=== PATIENT | female | born 2000 | race Caucasian/White ===

== ENCOUNTER 2020-06-07 11:22 | Emergency (ER) | payer OTHER, MEDICAID, SELFPAY ==
[2020-06-07 11:40] VITALS: BP 154/92; PULSE 67; RESP 16; TEMP 36.8; O2SAT 96; BMI 28.1
--- NOTE | 2020-06-07 12:09 | ED_ITS ---
HPI - Ear Problem <Linda Wagner PA-C - Last Filed: 06/07/20 22:27> General Chief complaint: Ear Stated complaint: right ear pain 8/10 injury x2 days Time Seen by Provider: 06/07/20 11:57 Source: patient Mode of arrival: Ambulatory Limitations: no limitations History of Present Illness HPI Narrative: This is a generally healthy 19-year-old with a history of PCOS and a ruptured right tympanic membrane as a child who presents to the emergency department with her mother and is complaining of severe 8/10 sharp right ear pain that feels deep but is not constant, yesterday afternoon she jumped off of a rope swing from about 20 ft of height into [place] and she says that she landed with her right ear on the right hitting the water, she continued to swim and felt ok at first but over the next hour so she started to develop right ear pain, it became so severe last night that she cannot sleep she did take Tylenol and ibuprofen it subsided somewhat but increased again this morning to an 8/10 and they came to the emergency department. She does feel like her hearing on the right is slightly muffled since yesterday. She has not had any bleeding from her ear, any discharge from her ear she denies headache, neck pain, visual symptoms, she did recently have strep throat about 3 weeks ago and took a course of Augmentin for this. MD Complaint: ear pain Location: right ear Duration: intermittent Severity: severe Relieving factors: nothing Exacerbating factors: chewing and palpation (Of the tragus) Context: recent illness (Strep throat 3 weeks ago), trauma (Barotrauma) and recent swimming Discharge from ear: no Associated symptoms ear: decreased hearing Treatment prior to arrival: other (Tylenol and ibuprofen) Related Data Previous Rx's Medication Instructions Recorded ofloxacin 5 drop EAR-RIGHT DAILY #10 ml 06/07/20 oxycodone-acetaminophen 1 tab PO TID PRN #14 tab 06/07/20 oxycodone-acetaminophen 1 tab PO Q6H PRN #14 tab 06/09/20 oxycodone-acetaminophen [Percocet] 1 tab PO Q6H PRN #14 tab 06/09/20 Allergies Allergy/AdvReac Type Severity Reaction Status Date / Time No Known Drug Allergies Allergy Verified 06/09/20 00:31 Review of Systems <Linda Wagner PA-C - Last Filed: 06/07/20 22:27> Review of Systems Narrative: GENERAL: Denies chills, fatigue, malaise, fever, sweats. HEENT: Denies sinus pain, positive for ear pain, negative for sore throat, difficulty swallowing, dizziness. RESPIRATORY: Denies dyspnea, cough, wheezing, hemoptysis, sputum. CARDIOVASCULAR: Denies chest pain, palpitations, orthopnea, edema, GASTROINTESTINAL: Denies nausea, vomiting, abdominal pain, diarrhea, constipation, melena. : Denies dysuria, frequency, incontinence, hematuria, urinary retention. MUSCULOSKELETAL: denies weakness, joint pain, or bony pain SKIN: Denies rash, skin lesions, or other NEUROLOGIC: Denies weakness, headache, numbness, change in speech, confusion, seizures, incoordination. PSYCHIATRIC: No concerning psychosocial issues. 12 point review of systems is negative except for those stated above Patient History <Linda Wagner PA-C - Last Filed: 06/07/20 22:27> Social History Smoking Status: Never smoker Smoking Status: Unknown if ever smoked alcohol intake frequency: holidays/special occasions only Substance Use Type: does not use Exam <RIO Boykin Last Filed: 06/07/20 22:27> Narrative Exam Narrative: GENERAL: 19 year old patient appears stated age. Well-nourished, obese, in moderate distress. HEAD: Atraumatic. Normocephalic. EYES: Pupils equal round and reactive. Extraocular motions intact. No scleral icterus. No injection or drainage. ENT: Nose without bleeding, purulent drainage. Throat without erythema, tonsillar hypertrophy or exudate. Airway patent. Bilateral ear canals are normal in appearance without discharge. The left tympanic membrane is pearly villanueva cone of light visible, the right tympanic membrane is intact, erythematous and injected with a clear fluid effusion behind it, there is scarring present right tympanic membrane is not retracted, not bulging. Hearing is intact bilaterally but is just slightly diminished on the right to whispered voice. NECK: Trachea midline. Non tender CARDIOVASCULAR: Regular rate and rhythm without murmurs, gallops, or rubs. RESPIRATORY: Clear to auscultation. Breath sounds equal bilaterally. No wheezes, rales, or rhonchi. GASTROINTESTINAL: Abdomen soft, non-tender, nondistended. EXTREMITIES: No edema or joint tenderness. BACK: Nontender without deformity or crepitance. No flank tenderness. NEURO: AOx3. Cranial nerves are intact. SKIN: No rash or erythema of visible areas Initial Vital Signs Initial Vital Signs: Vital Signs Temperature 98.2 F 06/07/20 11:40 Pulse Rate 67 06/07/20 11:40 Respiratory Rate 16 06/07/20 11:40 Blood Pressure 154/92 H 06/07/20 11:40 Pulse Oximetry 96 06/07/20 11:40 <Jose Morejon MD - Last Filed: 06/18/20 17:52> Initial Vital Signs Initial Vital Signs: Vital Signs Temperature 98.2 F 06/07/20 11:40 Pulse Rate 67 06/07/20 11:40 Respiratory Rate 16 06/07/20 11:40 Blood Pressure 154/92 H 06/07/20 11:40 Pulse Oximetry 96 06/07/20 11:40 Scores <Linda Wagner PA-C - Last Filed: 06/07/20 22:27> [employer] [place] coma scale eye opening: Spontaneous [place] coma scale verbal response: Orientated [place] coma scale motor response: Obey commands [place] coma scale total score: 15 Course <Linda Wagner PA-C - Last Filed: 06/07/20 22:27> Orders Ordered: Discontinued Medications Ketorolac Tromethamine (Toradol) 15 mg IM NOW ONE Stop: 06/07/20 12:26 Last Admin: 06/07/20 12:47 Dose: 15 mg Documented by: ALIN Ondansetron HCl (Zofran) 4 mg PO NOW ONE Stop: 06/07/20 12:26 Last Admin: 06/07/20 12:48 Dose: Not Given Documented by: BRIANAOTEM Ondansetron HCl (Zofran Odt) 4 mg SL NOW ONE Stop: 06/07/20 12:43 Last Admin: 06/07/20 12:48 Dose: 4 mg Documented by: ALIN Oxycodone/Acetaminophen (Percocet 5/325) 1 tab PO NOW ONE Stop: 06/07/20 13:21 Last Admin: 06/07/20 13:31 Dose: 1 tab Documented by: CTRFAVIOLA Vital Signs Vital signs: Vital Signs - 8 hr 06/07/20 11:40 06/07/20 13:29 Temperature 98.2 F 97.6 F Pulse Rate 67 74 Respiratory Rate 16 16 Blood Pressure 154/92 H 116/64 Pulse Oximetry 96 98 <Jose Morejon MD - Last Filed: 06/18/20 17:52> Orders Ordered: Discontinued Medications Ketorolac Tromethamine (Toradol) 15 mg IM NOW ONE Stop: 06/07/20 12:26 Last Admin: 06/07/20 12:47 Dose: 15 mg Documented by: BRIANAOTEM Ondansetron HCl (Zofran) 4 mg PO NOW ONE Stop: 06/07/20 12:26 Last Admin: 06/07/20 12:48 Dose: Not Given Documented by: KBROTEM Ondansetron HCl (Zofran Odt) 4 mg SL NOW ONE Stop: 06/07/20 12:43 Last Admin: 06/07/20 12:48 Dose: 4 mg Documented by: ALIN Oxycodone/Acetaminophen (Percocet 5/325) 1 tab PO NOW ONE Stop: 06/07/20 13:21 Last Admin: 06/07/20 13:31 Dose: 1 tab Documented by: LISA Vital Signs Vital signs: Vital Signs - 8 hr 06/07/20 11:40 06/07/20 13:29 Temperature 98.2 F 97.6 F Pulse Rate 67 74 Respiratory Rate 16 16 Blood Pressure 154/92 H 116/64 Pulse Oximetry 96 98 Medical Decision Making <Linda Wagner PA-C - Last Filed: 06/07/20 22:27> Differential Diagnosis Differential Diagnosis: Otic barotrauma, hearing loss, hemotympanum Medical Records Medical records reviewed: Yes I reviewed the patient's medical records. Lab Data Lab results reviewed: No I reviewed the patient's lab results. MDM Narrative Medical decision making narrative: This is a well-appearing 19-year-old who is in moderate distress complaining of 8/10 pain in her right ear that has been present on and off since yesterday evening. She sustained barotrauma to her right ear when she jumped off of a rope swing yesterday afternoon and landed in the water. Onset of her pain was delayed, hearing is intact, tympanic membrane is intact, she is provided with ofloxacin drops, as well as pain medicine, encouraged to follow-up with her primary care and also referred to ENT. Emergency return precautions are provided, all questions are answered. Discharge Plan Departure Patient Disposition: Home Clinical Impression: Barotrauma, otic Qualifiers: Encounter type: subsequent encounter Qualified Code(s): T70.0XXD - Otitic barotrauma, subsequent encounter Acute ear pain Qualifiers: Laterality: right Qualified Code(s): H92.01 - Otalgia, right ear Discharge Date/Time: 06/07/20 13:31 Instructions: How to Instill Ear Drops, DI for Ear Pain-Adult Activity Restrictions/Additional Instructions: Thank you for letting us be part of your care in the emergency department today. There is no evidence of an emergent or life threatening illness at this time, but follow up with your doctor in 1-2 days is recommended nonetheless to continue to rule out serious underlying causes of your symptoms. Your tympanic membrane is not ruptured however it did sustain trauma when your ear hit the water and is currently inflamed. I have also put in information for you to contact a ear nose and throat doctor, however strongly recommend you establish care with a primary care physician and I have included information for the [facility] resources [place], they can help you with this if you choose to establish here in [place] and they may be able to direct you to other options in [place] where you live. Please monitor your symptoms carefully, if you do develop fevers, have increasing ear pain, worsening hearing, drainage from your ear, developed a headache or new pain, please seek medical care. I have provided you with a prescription for ofloxacin drops as a prophylaxis against infection, I have also provided you with a short course of stronger pain medicine, however I do recommend you try taking Tylenol and ibuprofen to relieve her pain before resorting to stronger pain medicine. Please call your primary care office for an appointment. Please return to the Emergency Department for any worsening or persistent symptoms. Please take medications as directed. Prescriptions: New oxycodone-acetaminophen 5-325 mg tablet 1 tab PO TID PRN (Reason: pain) Qty: 14 RF: 0 ofloxacin 0.3 % drops 5 drop EAR-RIGHT DAILY Qty: 10 RF: 0 No Action oxycodone-acetaminophen 5-300 mg tablet 1 tab PO Q6H PRN (Reason: pain) Qty: 14 RF: 0 oxycodone-acetaminophen [Percocet] 5-325 mg tablet 1 tab PO Q6H PRN (Reason: pain) Qty: 14 RF: 0 Referrals: [facility] [Outside] Kaz Larios MD [Physician] - <Jose Morejon MD - Last Filed: 06/18/20 17:52> [facility] ED [facility] I was immediately available in the department for consultation. This documentation has been reviewed and I agree with assessment and plan. Supervised by Jose Morejon MD
[2020-06-07] MEDS: KETOROLAC 60 MG/2 ML VIAL 15 MG IM (12:47)
[2020-06-07] MEDS: ONDANSETRON 4 MG ODT SL (12:48)
[2020-06-07 13:29] VITALS: BP 116/64; PULSE 74; RESP 16; TEMP 36.4; O2SAT 98
[2020-06-07] MEDS: OXYCODONE/ACETAMINOPHEN 5/325 TABLET 1 TAB PO (13:31)
== END 2020-06-07 13:31 | disposition home or self-care (01) ==
PROVIDERS: Emergency Provider Student in an Organized Health Care Education/Training Program
DX: T70.0XXA Otitic barotrauma, initial encounter (principal); H92.01 Otalgia, right ear; E66.9 Obesity, unspecified; Y93.19 Activity, other involving water and watercraft
CPT/HCPCS: 96372; 99283; J1885

== ENCOUNTER 2020-06-08 02:21 | Emergency (ER) | payer OTHER, MEDICAID, SELFPAY ==
--- NOTE | 2020-06-08 02:28 | ED_ITS ---
HPI - Ear Problem General Chief complaint: Ear Stated complaint: right ear pain Time Seen by Provider: 06/08/20 02:28 History of Present Illness HPI Narrative: 19-year-old woman otherwise healthy presents for the 2nd time to the ER within 24 hours for severe right ear pain. She notes jumping off a rope swing into a [place] approximately 36 hours ago landing on her right ear initially seemed like things were okay but over the next hour noticed significantly increasing here pain and neck pain. Was unable to sleep that night. Seen yesterday in the emergency department provided ofloxacin drops and pain medication. In the interval she has gotten significantly worse, increasing swelling over the right side of her face and has noted some serosanguineous discharge from the right ear. She complains that her hearing is different out of that ear ?everyone sounds like there under water?, some mild right facial numbness significant neck pain. She does not note any nasal drainage and has not had any fevers. Related Data Previous Rx's Medication Instructions Recorded ofloxacin 5 drop EAR-RIGHT DAILY #10 ml 06/07/20 oxycodone-acetaminophen 1 tab PO TID PRN #14 tab 06/07/20 Allergies Allergy/AdvReac Type Severity Reaction Status Date / Time No Known Drug Allergies Allergy Verified 06/07/20 11:47 Review of Systems Review of Systems Narrative: Pertinent positive and negative findings as per HPI Remainder of review of systems is otherwise unremarkable for Constitutional: Fevers, chills, weakness CV: Chest pain, palpitations, Respiratory: Cough, wheeze, dyspnea GI: Nausea, vomiting, diarrhea, Patient History Social History Smoking Status: Unknown if ever smoked Smoking Status: Unknown if ever smoked alcohol intake frequency: holidays/special occasions only Substance Use Type: does not use Exam Narrative Exam Narrative: General: Healthy appearing, significant distress due to right- sided facial/ear pain. HEENT: Moist mucous membranes, normal sclera with reactive pupils, nasal mucosa is unremarkable, oropharynx is non erythematous She has fullness along the right side of her face. Notes decreased sensation to touch over her right cheek and jaw, tenderness at the mastoid process. Left tympanic membrane and ear are unremarkable. Right tympanic membrane with significant edema thickened with bleeding over the central portion of the ear ca nal there is approximately 25% tympanic membrane rupture the anterior portion. Moderate amount of canal edema is also appreciated. She is not specifically tender over the TMJ or with biting. Neck: Tenderness along the entire cervical spine with point tenderness C3-4 in 5 as well as paraspinous and trapezius muscle spasm right greater than left. Respiratory: Lungs are clear to auscultation, no wheezing no rales no rhonchi. Full and symmetrical air movement Cardiac: Regular rate and rhythm no murmurs no bruits Abdomen: Soft nontender good bowel tones, no flank pain Skin: Warm and dry, no rashes Extremities: No trauma, well perfused Psych: Cooperative, dramatic affect Initial Vital Signs Initial Vital Signs: Vital Signs Temperature 98.2 F 06/08/20 02:29 Pulse Rate 117 H 06/08/20 02:29 Respiratory Rate 33 H 06/08/20 02:29 Blood Pressure 128/87 06/08/20 02:29 Pulse Oximetry 98 06/08/20 02:29 Course Orders Ordered: ED Orders 06/08/20 02:45 Complete Blood Count AUTO DIFF Stat Comprehensive Metabolic Panel Stat 06/08/20 03:00 CT mastoid temporal Stat 06/08/20 03:04 CT cervical spine wo con Stat Discontinued Medications Hydromorphone HCl (Dilaudid) 0.5 mg IV NOW ONE Stop: 06/08/20 02:46 Last Admin: 06/08/20 02:53 Dose: 0.5 mg Documented by: KATHRIN Ketorolac Tromethamine (Toradol) 15 mg IV NOW ONE Stop: 06/08/20 02:46 Last Admin: 06/08/20 02:52 Dose: 15 mg Documented by: KATHRIN Ondansetron HCl (Zofran) 4 mg IV NOW ONE Stop: 06/08/20 02:58 Last Admin: 06/08/20 02:59 Dose: 4 mg Documented by: KATHRIN Oxycodone/Acetaminophen (Percocet 5/325) 2 tab PO NOW ONE Stop: 06/08/20 04:25 Vital Signs Vital signs: Vital Signs - 8 hr 06/08/20 02:29 Temperature 98.2 F Pulse Rate 117 H Respiratory Rate 33 H Blood Pressure 128/87 Pulse Oximetry 98 Medical Decision Making Medical Records Medical records reviewed: Yes I reviewed the patient's medical records. Lab Data Lab results reviewed: Yes I reviewed the patient's lab results. Result diagrams: 06/08/20 02:45 06/08/20 02:45 Labs: Lab Results 06/08/20 06/08/20 Range/Units 02:45 02:45 WBC 10.2 (4.5-11.0) X10^3/uL RBC 4.38 (4.0-5.2) X10^6/uL Hgb 13.0 (12.0-16.0) g/dL Hct 38.5 (36-46) % MCV 88.0 (80-100) fL MCH 29.7 (26-34) PG MCHC 33.7 (30-36) % RDW 13.2 (11.6-14.8) % Plt Count 362 (150-400) X10^3/uL Neut % (Auto) 63.7 (50-75) % Lymph % (Auto) 22.7 L (25-40) % [place] % (Auto) 10.6 (3-14) % Eos % (Auto) 2.6 (2-4) % Baso % (Auto) 0.4 (0-2) % Neut # (Auto) 6500 (0107-8904) /uL Lymph # (Auto) 2300 (5359-4760) /uL [place] # (Auto) 1100 H (0-900) /uL Eos # (Auto) 300 (0-450) /uL Baso # (Auto) 0 (0-100) /uL Sodium 136 L (137-145) mmol/L Potassium 3.9 (3.4-5.1) mmol/L Chloride 101 (98-107) mmol/L Carbon Dioxide 29 (22-32) mmol/L BUN 10 (7-17) mg/dL Creatinine 0.50 L (0.52-1.04) mg/dL Estimated GFR > 60.0 (>60) mL/min BUN/Creatinine Ratio 20.0 (6-22) Glucose 106 H (70-100) mg/dL Calcium 9.7 (8.4-10.2) mg/dL Total Bilirubin 0.5 (0.2-1.3) mg/dL AST 29 (14-36) IU/L ALT 23 (<35) IU/L Alkaline Phosphatase 93 (38-126) U/L Total Protein 7.5 (6.3-8.2) g/dL Albumin 4.6 (3.5-5.0) g/dL Globulin 2.9 (1.7-4.1) g/dL Albumin/Globulin Ratio 1.6 (1.0-2.8) Imaging Data CT of the temporal bones with out contrast: Radiologist's Impression: Thickening of the tympanic membrane and fluid within the middle ear Increased soft density within prove sacs space compatible with cholesteatoma Facial nerve appears unremarkable Minimal fluid within right mastoid air cells Electronically signed June 08, 2020 4:08am Bekah Sesay MD CT - cervical spine: Radiologist's Impression: No acute traumatic injury Mild sphenoid sinus disease Electronically signed June 08, 2020 4:12am Bekah Sesay MD [facility] Narrative Medical decision making narrative: Patient is feeling better after Toradol and IV Dilaudid. The neck brace actually is also quite helpful. She does have significant tympanic membrane injury and swelling but no other fractures or acute facial nerve injury is appreciated. She will need to follow- up with ENT. I will also ask her to continue with the ear drops started earlier today. She has 14 Percocet and I will ask her to combined had ibuprofen with Percocet for more effective pain control. She is safe for home discharge Discharge Plan Departure Patient Disposition: Home Clinical Impression: Rupture of right tympanic membrane Barotrauma, otic Qualifiers: Encounter type: subsequent encounter Qualified Code(s): T70.0XXD - Otitic barotrauma, subsequent encounter Acute strain of neck muscle Qualifiers: Encounter type: subsequent encounter Qualified Code(s): S16.1XXD - Strain of muscle, fascia and tendon at neck level, subsequent encounter Cholesteatoma Qualifiers: Laterality: right Qualified Code(s): H71.91 - Unspecified cholesteatoma, right ear Instructions: Ruptured Eardrum Activity Restrictions/Additional Instructions: Thank you for coming back this evening You clearly caused significant swelling to the tympanic membrane with the fall. I suspect the swelling along your face is simply due to the fall as well. The CT scan shows a swollen tympanic membrane but no other dramatic injuries. The hearing loss is likely due to the swollen tympanic membrane. The acute pain that you experienced that brought you back to the emergency room tonight was likely the tympanic membrane rupturing. The rupture look small enough that it should heal nicely. An incidental finding on the CT scan was a cholesteatoma, a collection of skin cells inside the middle ear. For the acute neck strain I am going to give you a soft collar, use this to support your head and for comfort only. The CT scan of your neck and cervical spine was normal. Using 400 mg of ibuprofen (2 [id number] pills) and 1 Tylenol every 6 hours can be very helpful in controlling pain. For severe pain you can use 400 mg of ibuprofen and 1 or 2 Percocet. Please continue with ear drops that you picked up earlier today Later today, you need to call [facility] to schedule an appointment with the [employer]. I hope you feel better Prescriptions: No Action oxycodone-acetaminophen 5-325 mg tablet 1 tab PO TID PRN (Reason: pain) Qty: 14 RF: 0 ofloxacin 0.3 % drops 5 drop EAR-RIGHT DAILY Qty: 10 RF: 0 Referrals: Kaz Larios MD [Physician] -
[2020-06-08 02:29] VITALS: BP 128/87; PULSE 117; RESP 33; TEMP 36.8; O2SAT 98; BMI 28.1
[2020-06-08] MEDS: KETOROLAC 60 MG/2 ML VIAL 15 MG IV (02:52)
[2020-06-08] MEDS: HYDROMORPHONE 0.5 MG INJ IV (02:53)
[2020-06-08 02:55] LABS: Add Manual Diff / Slide Review NO; Basophils Absolute Auto 0 /uL (0-100); Basophils Percent Auto 0.4 % (0-2); Eosinophils Absolute Auto 300 /uL (0-450); Eosinophils Percent Auto 2.6 % (2-4); Hematocrit 38.5 % (36-46); Lymphocytes Absolute Auto 2300 /uL (1100-4500); Lymphocytes Percent Auto 22.7 % (25-40); Mean Corpuscular HGB Conc 33.7 % (30-36); Mean Corpuscular Hemoglobin 29.7 PG (26-34); Monocytes Absolute Auto 1100 /uL (0-900); Monocytes Percent Auto 10.6 % (3-14); Neutrophils Absolute Auto 6500 /uL (1500-7000); Neutrophils Percent Auto 63.7 % (50-75); Platelet Count 362 X10^3/uL (150-400); Red Blood Cell Count 4.38 X10^6/uL (4.0-5.2); Red Cell Distribution Width 13.2 % (11.6-14.8); White Blood Cell Count 10.2 X10^3/uL (4.5-11.0)
[2020-06-08] MEDS: ONDANSETRON 4 MG/2 ML INJ IV (02:59)
--- NOTE | 2020-06-08 03:00 | DI.CT.S_ITS ---
PROCEDURE: CT MASTOID TEMPORAL INDICATIONS: barotrauma, hearing loss, facial numbness COMPARISON: [facility], CT, CT CERVICAL SPINE WO CON, 06/08/2020, 2:59. TECHNIQUE: Noncontrast 0.6 mm thick direct axial and coronal sections acquired through each temporal bone separately. FINDINGS: Image quality: Excellent. RIGHT: External auditory canal: Canal has a normal appearance. Middle ear: There is abnormal soft tissue density material seen throughout the right middle ear cavity, including within Prussak's space. No definite erosions of the middle ear ossicles can be seen. The scutum appears intact. The tympanic membrane appears thickened. Inner ear: Inner ear is normally formed and appears unremarkable. Facial nerve appears normal throughout is course. Mastoids: Mastoid air cells demonstrate mild fluid. LEFT: External auditory canal: Canal has a normal appearance. Middle ear: The middle ear structures, including the ossicles and tympanic membrane, appear normal. No abnormal fluid or soft tissue density. Inner ear: Inner ear is normally formed and appears unremarkable. Facial nerve appears normal throughout its course. Mastoids: Mastoid air cells are clear. MISCELLANEOUS: Minimal mucosal thickening is seen within the sphenoid sinuses. Visualized surrounding bones appear unremarkable. Visualized intracranial structures, including the cerebellopontine angle cisterns, appear normal. IMPRESSION: Abnormal right middle ear cavity, with generalized abnormal soft tissue material seen within and a thickened tympanic membrane. Given the history of barotrauma, differential diagnosis includes hemorrhage. However, differential diagnosis would also include cholesteatoma and potentially otitis media. ENT consultation is recommended. Mild fluid is seen within the right mastoid air cells. Note: No significant discrepancy from the preliminary report. Dictated by: Navjot Madden M.D. on 06/08/2020 at 8:23 Approved by: Navjot Madden M.D. on 06/08/2020 at 8:31
[2020-06-08 03:03] LABS: Alanine Aminotransferase 23 IU/L (<35); Albumin 4.6 g/dL (3.5-5.0); Albumin Globulin Ratio 1.6 (1.0-2.8); Alkaline Phosphatase 93 U/L (38-126); Aspartate Aminotransferase 29 IU/L (14-36); Bilirubin Total 0.5 mg/dL (0.2-1.3); Blood Urea Nitrogen 10 mg/dL (7-17); Calcium 9.7 mg/dL (8.4-10.2); Carbon Dioxide 29 mmol/L (22-32); Chloride 101 mmol/L (98-107); Estimated Glomerular Filt Rate > 60.0 mL/min (>60); Globulin 2.9 g/dL (1.7-4.1); Glucose 106 mg/dL (70-100); HEMOLYSIS < 15 (0-50); Potassium 3.9 mmol/L (3.4-5.1); Sodium 136 mmol/L (137-145); Total Protein 7.5 g/dL (6.3-8.2)
--- NOTE | 2020-06-08 03:04 | DI.CT.S_ITS ---
PROCEDURE: CT CERVICAL SPINE WO CON INDICATIONS: trauma 36hrs ago, pain TECHNIQUE: Noncontrast 3 mm thick sections acquired from the skull base to the T4 level. Sagittal and coronal reformats were then constructed. For radiation dose reduction, the following was used: automated exposure control, adjustment of mA and/or kV according to patient size. COMPARISON: [facility], CT, CT MASTOID TEMPORAL, 06/08/2020, 2:59. FINDINGS: Image quality: Excellent. Bones: No fractures or dislocations. Visualized superior ribs are intact. Mild sphenoid sinus mucosal thickening. Soft tissues: Prevertebral soft tissues are normal in thickness. No paravertebral hematomas. No apical pneumothoraces. IMPRESSION: No cervical spine fractures. No significant discrepancy with the night time nanny radiology preliminary report. Dictated by: Jonny Calle M.D. on 06/08/2020 at 7:42 Approved by: Jonny Calle M.D. on 06/08/2020 at 7:44
[2020-06-08] MEDS: OXYCODONE/ACETAMINOPHEN 5/325 TABLET 2 TAB PO (04:30)
[2020-06-08 04:42] VITALS: BP 118/68; PULSE 70; RESP 19; O2SAT 98
== END 2020-06-08 04:43 | disposition home or self-care (01) ==
PROVIDERS: Emergency Provider Emergency Medicine
DX: T70.0XXD Otitic barotrauma, subsequent encounter (principal); H72.91 Unspecified perforation of tympanic membrane, right ear; S16.1XXD Strain of muscle, fascia and tendon at neck level, subsequent encounter; H71.91 Unspecified cholesteatoma, right ear; Y93.19 Activity, other involving water and watercraft
CPT/HCPCS: 36415; 70480; 72125; 80053; 85025; 96374; 96375; 99285; J1170; J1885; J2405

== ENCOUNTER 2020-06-09 00:14 | Emergency (ER) | payer OTHER, SELFPAY ==
[2020-06-09 00:31] VITALS: BP 137/88; PULSE 105; RESP 20; O2SAT 100; BMI 29.1
[2020-06-09] MEDS: OXYCODONE/ACETAMINOPHEN 5/325 TABLET 1 TAB PO (00:52)
[2020-06-09] MEDS: IBUPROFEN 400 MG TABLET PO (00:52)
--- NOTE | 2020-06-09 04:07 | ED.CHESTPAIN ---
HPI - Chest Pain General Chief Complaint: Chest Pain Stated Complaint: chest pain Time Seen by Provider: 06/09/20 00:32 Source: patient Mode of arrival: Ambulatory Limitations: no limitations History of Present Illness HPI narrative: 19-year-old young woman who was seen yesterday with significant barotrauma of the right ear after swinging on a rope swing [place] with significant pain to the right side of her head. The ear is somewhat improved, right facial swelling has resolved but this evening she is noting significant chest pain in his concerns. Pain is worse with palpation and deep breathing. She has no associated cough fever, dyspnea or wheezing. Related Data Previous Rx's Medication Instructions Recorded ofloxacin 5 drop EAR-RIGHT DAILY #10 ml 06/07/20 oxycodone-acetaminophen 1 tab PO TID PRN #14 tab 06/07/20 oxycodone-acetaminophen 1 tab PO Q6H PRN #14 tab 06/09/20 Allergies Allergy/AdvReac Type Severity Reaction Status Date / Time No Known Drug Allergies Allergy Verified 06/09/20 00:31 Review of Systems Review of Systems Narrative: Remainder of review of systems including constitutional, ENT, cardiovascular, respiratory, GI, , musculoskeletal, skin, neurologic and psychiatric systems reviewed and are unremarkable except as noted in HPI. Patient History Social History Smoking Status: Never smoker Smoking Status: Never smoker alcohol intake frequency: holidays/special occasions only Substance Use Type: does not use Exam Narrative Exam Narrative: General: Appears tired, injected sclera but Able to give a complete and coherent history. Well-nourished well-developed HEENT: Moist mucous membranes, right facial swelling is less and there is increased sensation to the right side of her face compared to yesterday. Right tympanic membrane is even more swollen and erythematous than yesterday but there is no discharge appreciated. Still small tympanic membrane defect however the edema is filling in the defect nicely. Neck: No JVD, right-sided para spinous muscle spasm and right trapezius tenderness Respiratory: Lungs are clear to auscultation, no wheezing no rales no rhonchi. Full and symmetrical air movement Chest: Significant tenderness at all costochondral margins with pain reproduced on lateral compression of the ribcage Cardiac: Regular rate and rhythm, loud 4/6 systolic ejection murmur noted today Abdomen: Soft nontender good bowel tones, no flank pain Skin: Warm and dry, no rashes Neurologic: Grossly neurologically intact with no obvious asymmetries or abnormalities Extremities: No trauma, well perfused Psych: Cooperative, appropriate insight and affect Initial Vital Signs Initial Vital Signs: Vital Signs Pulse Rate 105 H 06/09/20 00:31 Respiratory Rate 20 06/09/20 00:31 Blood Pressure 137/88 06/09/20 00:31 Pulse Oximetry 100 06/09/20 00:31 Course Orders Ordered: ED Orders 06/09/20 EKG-12 Lead Stat Discontinued Medications Ibuprofen (Advil) 400 mg PO NOW ONE Stop: 06/09/20 00:48 Last Admin: 06/09/20 00:52 Dose: 400 mg Documented by: KIMBERLI Oxycodone/Acetaminophen (Percocet 5/325) 1 tab PO NOW ONE Stop: 06/09/20 00:48 Last Admin: 06/09/20 00:52 Dose: 1 tab Documented by: KIMBERLI Vital Signs Vital signs: Vital Signs - 8 hr 06/09/20 00:31 Pulse Rate 105 H Respiratory Rate 20 Blood Pressure 137/88 Pulse Oximetry 100 MDM - Chest Pain MDM Narrative Medical decision making narrative: Still sequelae from the fall/jump from the rope swing now with costochondritis. 4/6 systolic ejection murmur is noted today. Refer back to her primary care physician for further evaluation. Significant family history for multiple valvular issues on her mother's side. Continued pain medication as for the barotrauma and ruptured tympanic membrane. Encouraged her to truly seek follow-up with ENT for the ear injury. Discharge Plan Departure Patient Disposition: Home Clinical Impression: Acute costochondritis, Heart murmur Barotrauma, otic Qualifiers: Encounter type: subsequent encounter Qualified Code(s): T70.0XXD - Otitic barotrauma, subsequent encounter Discharge Date/Time: 06/09/20 01:00 Instructions: DI for Costochondritis, DI for Heart Murmur-Adult Activity Restrictions/Additional Instructions: I am sorry you needed to come back today Your ear looks about the same, please continue the ear drops and make sure that you call [facility] to schedule a follow-up appointment [phone] Your chest hurts along your breast bone and is very likely costochondritis that is developing after the impact of your [place] landing 2 days ago. The treatment for this is time and nonsteroidals. The same combination of medications that you are using for your ear will help with your chest. In listening to your heart today, I heard a heart murmur. This is not related to your chest pain or any acute issue however is loud enough that it does deserve follow-up. You need to see a primary care doctor and have them take a listen head and decide if additional workup is required. I hope you continue to heal. Prescriptions: New oxycodone-acetaminophen 5-300 mg tablet 1 tab PO Q6H PRN (Reason: pain) Qty: 14 RF: 0 No Action oxycodone-acetaminophen 5-325 mg tablet 1 tab PO TID PRN (Reason: pain) Qty: 14 RF: 0 ofloxacin 0.3 % drops 5 drop EAR-RIGHT DAILY Qty: 10 RF: 0
== END 2020-06-09 01:00 | disposition home or self-care (01) ==
PROVIDERS: Emergency Provider Emergency Medicine
DX: M94.0 Chondrocostal junction syndrome [Tietze] (principal); R01.1 Cardiac murmur, unspecified; T70.0XXD Otitic barotrauma, subsequent encounter; R07.9 Chest pain, unspecified
CPT/HCPCS: 93005; 99283